=== PATIENT | female | born 1980 | race Caucasian/White ===

== ENCOUNTER → 2016-03-29 | Outpatient (CLI) | payer OTHER ==
[2016-03-29 17:09] LABS: MEAN CORPUSCULAR HGB CONC 34.9 g/dl (32.0-36.5); MEAN CORPUSCULAR VOLUME 91.8 fl (80.0-96.0); RED CELL DISTRIBUTION WIDTH 11.6 % (11.5-14.5); WHITE BLOOD COUNT 5.3 K/mm3 (4.0-10.0)
[2016-03-29 18:45] LABS: ALBUMIN 3.7 GM/DL (3.2-5.2); ALBUMIN/GLOBULIN RATIO 1.12 (1.00-1.93); ALKALINE PHOSPHATASE 44 U/L (45-117); ALT/SGPT 33 U/L (12-78); ANION GAP 11 MEQ/L (8-16); AST/SGOT 18 U/L (15-37); BILIRUBIN,TOTAL 0.3 MG/DL (0.2-1.0); BLOOD UREA NITROGEN 9 MG/DL (7-18); CALCIUM LEVEL 8.6 MG/DL (8.5-10.1); CARBON DIOXIDE LEVEL 27 MEQ/L (21-32); CHLORIDE LEVEL 104 MEQ/L (98-107); CHOLESTEROL LEVEL 160 MG/DL (<200); CREATININE FOR GFR 0.67 MG/DL (0.55-1.02); GLOMERULAR FILTRATION RATE > 60.0 (>60); GLUCOSE, FASTING 82 MG/DL (70-105); POTASSIUM SERUM 4.1 MEQ/L (3.5-5.1); SODIUM LEVEL 142 MEQ/L (136-145); TRIGLYCERIDES LEVEL 108 MG/DL (<150)
== END ==
LOC: M LAB 15:50
PROVIDERS: ATTEND Family Medicine
DX: D64.9 Anemia, unspecified (principal); R53.83 Other fatigue

== ENCOUNTER → 2016-10-14 | Outpatient (CLI) | payer OTHER ==
--- NOTE | 2016-10-14 14:24 | REP ---
Pelvic ultrasound including transabdominal, endovaginal and Doppler ultrasound assessment: The bladder is adequately distended. The uterus is anteverted and upper normal size measuring 8.9 x 4.45 point 7 cm. The endometrium is not thickened measuring up to 4.3 mm. There is an IUD within the endometrial canal. The ovaries are normal size. Right ovary measures 2.9 x 1.9 x 2.1 cm. Left ovary measures 3.5 x 3.0 x 3.3 cm. There is no dominant ovarian mass or cyst. There is vascular flow in both ovaries with the Doppler resistive index of the intraparenchymal arteries of the right ovary measuring 0.43 on the left ovary measuring 0.38. The myometrium is heterogeneous compatible with fibroid uterus. Impression: Heterogeneous myometrium compatible with fibroid uterus. However no focal discrete fibroids are identified. There is an IUD in the endometrial canal. There is no dominant ovarian mass or cyst. There is vascular flow in both ovaries. No free fluid in the pelvis. Signed by Napoleon Dupree MD 10/14/2016 02:16 P
== END ==
LOC: M RAD 09:57
PROVIDERS: ATTEND Family Medicine
DX: R19.03 Right lower quadrant abdominal swelling, mass and lump (principal)

== ENCOUNTER → 2016-10-19 | Outpatient (CLI) | payer OTHER ==
[2016-10-19 10:12] LABS: MEAN CORPUSCULAR HEMOGLOBIN 32.7 pg (27.0-33.0); MEAN CORPUSCULAR HGB CONC 34.8 g/dl (32.0-36.5); MEAN CORPUSCULAR VOLUME 94.1 fl (80.0-96.0); RED CELL DISTRIBUTION WIDTH 11.9 % (11.5-14.5); WHITE BLOOD COUNT 7.1 K/mm3 (4.0-10.0)
--- NOTE | 2016-10-19 12:31 | REP ---
Chest two views HISTORY: Hypertension Comparison: None The lungs are clear. The heart is normal in size. The pulmonary vasculature is normal in appearance. The bony structure is intact. IMPRESSION: No acute disease. Signed by Praveen Pereira MD 10/19/2016 12:23 P
[2016-10-19 16:49] LABS: ALBUMIN 3.7 GM/DL (3.2-5.2); ALBUMIN/GLOBULIN RATIO 1.16 (1.00-1.93); ALKALINE PHOSPHATASE 35 U/L (45-117); ALT/SGPT 26 U/L (12-78); ANION GAP 7 MEQ/L (8-16); AST/SGOT 11 U/L (15-37); BILIRUBIN,TOTAL 0.6 MG/DL (0.2-1.0); BLOOD UREA NITROGEN 12 MG/DL (7-18); CALCIUM LEVEL 8.6 MG/DL (8.5-10.1); CARBON DIOXIDE LEVEL 27 MEQ/L (21-32); CHLORIDE LEVEL 104 MEQ/L (98-107); CHOLESTEROL LEVEL 174 MG/DL (<200); CREATININE FOR GFR 0.67 MG/DL (0.55-1.02); GLOMERULAR FILTRATION RATE > 60.0 (>60); GLUCOSE, FASTING 70 MG/DL (70-105); SODIUM LEVEL 138 MEQ/L (136-145); THYROXINE (T4) 9.4 UG/DL (4.5-12.0); TOTAL PROTEIN 6.9 GM/DL (6.4-8.2); TRIGLYCERIDES LEVEL 75 MG/DL (<150)
--- NOTE | 2016-10-19 22:53 | ECGEPIP ---
Stationary ECG Study [facility] Test Date: 2016-10-19 Pat Name: CHELE TRACY Department: Room: - Gender: F Wellness Specialist: JOHNNY : 1980 Requested By: Elizabeth Kirk Order Number: [id number] Reading MD: Csaey Mooney Measurements Intervals Parsons Rate: 61 P: 40 VT: 166 QRS: 34 QRSD: 89 T: 19 QT: 377 QTc: 380 Interpretive Statements SINUS RHYTHM NO PRIOR TRACING IN THE SYSTEM Electronically Signed On 10-19-2016 22:53:28 EDT by Casey Mooney
== END ==
LOC: M LAB 09:34
PROVIDERS: ATTEND Family Medicine
DX: R53.83 Other fatigue (principal); I10 Essential (primary) hypertension

== ENCOUNTER → 2017-05-02 | Outpatient (CLI) | payer OTHER ==
[2017-05-02 11:03] LABS: HEMATOCRIT 43.9 % (36.0-47.0); HEMOGLOBIN 14.7 g/dl (12.0-16.0); MEAN CORPUSCULAR HEMOGLOBIN 31.2 pg (27.0-33.0); MEAN CORPUSCULAR HGB CONC 33.5 g/dl (32.0-36.5); MEAN CORPUSCULAR VOLUME 93.2 fl (80.0-96.0); PLATELET COUNT, AUTOMATED 225 10^3/uL (150-450); RED BLOOD COUNT 4.71 10^6/uL (4.00-5.40); RED CELL DISTRIBUTION WIDTH 11.7 % (11.5-14.5); WHITE BLOOD COUNT 6.7 10^3/uL (4.0-10.0)
[2017-05-02 11:13] LABS: ESTIMATED AVERAGE GLUCOSE 100 MG/DL (60-110); HEMOGLOBIN A1c 5.1 %
[2017-05-02 11:22] LABS: TOTAL 25(OH) VITAMIN D 19.9 NG/ML (30.0-100.0)
[2017-05-02 11:26] LABS: ALBUMIN 3.6 GM/DL (3.2-5.2); ALBUMIN/GLOBULIN RATIO 1.13 (1.00-1.93); ALKALINE PHOSPHATASE 34 U/L (45-117); ALT/SGPT 22 U/L (12-78); ANION GAP 5 MEQ/L (8-16); AST/SGOT 16 U/L (7-37); BILIRUBIN,TOTAL 0.6 MG/DL (0.2-1.0); BLOOD UREA NITROGEN 10 MG/DL (7-18); CALCIUM LEVEL 8.9 MG/DL (8.5-10.1); CARBON DIOXIDE LEVEL 33 MEQ/L (21-32); CHLORIDE LEVEL 103 MEQ/L (98-107); CHOLESTEROL LEVEL 183 MG/DL (<200); CHOLESTEROL RISK RATIO 3.452 (<5); CREATININE FOR GFR 0.65 MG/DL (0.55-1.30); GLOMERULAR FILTRATION RATE > 60.0 (>60); GLUCOSE, FASTING 84 MG/DL (70-100); HDL CHOLESTEROL 53 MG/DL (>40); IRON (FE) 111 UG/DL (50-170); LDL CHOLESTEROL 108.6 MG/DL (<100); NON-HDL-C 130 MG/DL; PERCENT SATURATION 37.5 % (13.2-45.0); POTASSIUM SERUM 4.4 MEQ/L (3.5-5.1); SODIUM LEVEL 141 MEQ/L (136-145); TOTAL IRON BINDING CAPACITY 296 UG/DL (250-450); TOTAL PROTEIN 6.8 GM/DL (6.4-8.2); TRIGLYCERIDES LEVEL 107 MG/DL (<150)
== END ==
LOC: M LAB 10:23
DX: R53.83 Other fatigue (principal); E03.9 Hypothyroidism, unspecified; D64.9 Anemia, unspecified
CPT/HCPCS: 83550

== ENCOUNTER → 2017-12-25 | Outpatient (CLI) | payer OTHER | LOC: M RAD 10:06 | DX: I10 Essential (primary) hypertension (principal) | CPT/HCPCS: 71046 ==

== ENCOUNTER → 2017-12-31 | Outpatient (REF) | payer OTHER | LOC: M LAB REF 18:01 | DX: J02.9 Acute pharyngitis, unspecified (principal) ==

== ENCOUNTER → 2019-10-11 | Outpatient (REF) | payer OTHER, MEDICARE ==
[2019-11-08 12:43] LABS: APPEARANCE, URINE HAZY (CLEAR); BACTERIA, URINE AUTO 1+ (NEGATIVE); BILIRUBIN, URINE AUTO NEGATIVE (NEGATIVE); BLOOD, URINE BLOOD 3+ (NEGATIVE); COLOR, URINE YELLOW (YELLOW); GLUCOSE, URINE (UA) AUTO NEGATIVE (NEGATIVE); KETONE, URINE AUTO NEGATIVE (NEGATIVE); LEUKOCYTE ESTERASE, URINE AUTO 3+ (NEGATIVE); NITRITE, URINE AUTO NEGATIVE (NEGATIVE); PROTEIN, URINE AUTO NEGATIVE (NEGATIVE); RBC, URINE AUTO 86 /HPF (0-3); SPECIFIC GRAVITY URINE AUTO 1.008 (1.002-1.035); SQUAMOUS EPITHELIAL CELL UR AU 1 /HPF (0-6); UROBILINOGEN, URINE AUTO 0.2 mg/dL (0.0-2.0); WBC, URINE AUTO 29 /HPF (0-3)
[2019-11-26 09:47] LABS: CHLAMYDIA DNA AMPLIFICATION NEGATIVE (NEGATIVE); GC DNA AMPLIFICATION NEGATIVE (NEGATIVE)
== END ==
LOC: M SFHCLERA 12:17
PROVIDERS: ATTEND Nurse Practitioner Family
DX: R39.9 Unspecified symptoms and signs involving the genitourinary system (principal)

== ENCOUNTER → 2019-11-27 | Outpatient (CLI) | payer OTHER ==
[2019-11-27 12:15] LABS: BASO # 0.1 10^3/uL (0.0-0.2); BASO % 0.9 % (0.0-1.0); EOS # 0.1 10^3/uL (0.0-0.5); EOS % 1.3 % (0.0-3.0); HEMATOCRIT 45.1 % (36.0-47.0); HEMOGLOBIN 15.2 g/dl (12.0-15.5); LYMPH # 1.9 10^3/uL (1.5-5.0); LYMPH % 33.9 % (24.0-44.0); MEAN CORPUSCULAR HEMOGLOBIN 32.1 pg (27.0-33.0); MEAN CORPUSCULAR HGB CONC 33.7 g/dl (32.0-36.5); MEAN CORPUSCULAR VOLUME 95.3 fl (80.0-96.0); MONO # 0.7 10^3/uL (0.0-0.8); MONO % 12.7 % (0.0-5.0); NEUTROPHILS # 2.8 10^3/uL (1.5-8.5); PLATELET COUNT, AUTOMATED 246 10^3/uL (150-450); RED BLOOD COUNT 4.73 10^6/uL (4.00-5.40); WHITE BLOOD COUNT 5.5 10^3/uL (4.0-10.0)
--- NOTE | 2019-11-27 12:50 | REPVR ---
PROCEDURE INFORMATION: Exam: XR Complete Acute Abdomen Series Exam date and time: 11/27/2019 12:25 PM Age: 39 years old Clinical indication: Abdominal pain; Acute; Patient HX: H/0 gastric bypass; Additional info: H/o gastric bypass, acute R ab pain TECHNIQUE: Imaging protocol: XR complete acute abdomen series, including 2 or more views of the abdomen and a single view chest. COMPARISON: CR Chest, 2 view PA, Lat 12/25/2017 10:24 AM FINDINGS: Lungs: Hyperinflation and mild interstitial prominence. No acute airspace disease. Pleural space: No pleural effusion. Heart/Mediastinum: Normal configuration of the heart. Gastrointestinal tract: Enteric contrast in the colon. Mild small bowel dilatation and air-fluid levels. Intraperitoneal space: Surgical sutures in the left upper and mid abdomen. Organs: IUD. Vasculature: Subcentimeter pelvic calcifications, presumably vascular in etiology. Bones/joints: Mild degenerative change. IMPRESSION: 1. Hyperinflation and mild interstitial prominence. 2. Enteric contrast in the colon. Mild small bowel dilatation and air-fluid levels. Electronically signed by: Fede Metz On 11/27/2019 12:49:42 PM
[2019-11-27 12:53] LABS: ALT/SGPT 33 U/L (12-78); AMYLASE 32 U/L (25-115); BILIRUBIN,TOTAL 0.7 MG/DL (0.2-1.0); BLOOD UREA NITROGEN 10 MG/DL (7-18); CALCIUM LEVEL 9.4 MG/DL (8.5-10.1); CARBON DIOXIDE LEVEL 29 MEQ/L (21-32); CHLORIDE LEVEL 104 MEQ/L (98-107); CREATININE FOR GFR 0.88 MG/DL (0.55-1.30); GLOMERULAR FILTRATION RATE > 60.0 (>60); GLUCOSE, FASTING 89 MG/DL (70-100); LIPASE 38 U/L (73-393); POTASSIUM SERUM 3.8 MEQ/L (3.5-5.1); SODIUM LEVEL 138 MEQ/L (136-145); TOTAL PROTEIN 7.3 GM/DL (6.4-8.2)
== END ==
LOC: M LAB 11:44
PROVIDERS: ATTEND Family Medicine
DX: R10.9 Unspecified abdominal pain (principal); Z98.0 Intestinal bypass and anastomosis status; Z98.84 Bariatric surgery status

== ENCOUNTER → 2019-12-13 | Outpatient (REF) | payer OTHER | LOC: M SFHCLERA 13:42 | PROVIDERS: ATTEND Nurse Practitioner Family | DX: N89.8 Other specified noninflammatory disorders of vagina (principal) ==

== ENCOUNTER → 2020-03-18 | Outpatient (CLI) | payer OTHER ==
[2020-03-18 10:32] LABS: BASO # 0.1 10^3/uL (0.0-0.2); BASO % 0.8 % (0.0-1.0); EOS # 0.2 10^3/uL (0.0-0.5); EOS % 2.7 % (0.0-3.0); HEMATOCRIT 45.3 % (36.0-47.0); HEMOGLOBIN 14.4 g/dl (12.0-15.5); LYMPH # 2.2 10^3/uL (1.5-5.0); LYMPH % 33.3 % (24.0-44.0); MEAN CORPUSCULAR HEMOGLOBIN 31.3 pg (27.0-33.0); MEAN CORPUSCULAR HGB CONC 31.8 g/dl (32.0-36.5); MEAN CORPUSCULAR VOLUME 98.5 fl (80.0-96.0); MONO # 0.7 10^3/uL (0.0-0.8); MONO % 11.2 % (0.0-5.0); NEUTROPHILS # 3.4 10^3/uL (1.5-8.5); NEUTROPHILS % 51.8 % (36.0-66.0); PLATELET COUNT, AUTOMATED 213 10^3/uL (150-450); WHITE BLOOD COUNT 6.6 10^3/uL (4.0-10.0)
[2020-03-18 11:14] LABS: ALBUMIN 4.1 GM/DL (3.2-5.2); ALT/SGPT 29 U/L (12-78); BILIRUBIN,TOTAL 0.6 MG/DL (0.2-1.0); BLOOD UREA NITROGEN 10 MG/DL (7-18); CALCIUM LEVEL 9.1 MG/DL (8.5-10.1); CARBON DIOXIDE LEVEL 30 MEQ/L (21-32); CHLORIDE LEVEL 105 MEQ/L (98-107); CREATININE FOR GFR 0.69 MG/DL (0.55-1.30); FREE T4 0.88 NG/DL (0.76-1.46); GLOMERULAR FILTRATION RATE > 60.0 (>60); GLUCOSE, FASTING 80 MG/DL (70-100); POTASSIUM SERUM 4.5 MEQ/L (3.5-5.1); SODIUM LEVEL 139 MEQ/L (136-145); THYROID STIMULATING HORMONE 0.923 uIU/ML (0.358-3.740); TOTAL PROTEIN 6.7 GM/DL (6.4-8.2)
== END ==
LOC: M LAB 09:28
PROVIDERS: ATTEND Family Medicine
DX: F31.81 Bipolar II disorder (principal)

== ENCOUNTER → 2020-05-18 | Outpatient (CLI) | payer OTHER ==
[2020-05-18 10:59] LABS: BASO % 0.6 % (0.0-1.0); EOS # 0.2 10^3/uL (0.0-0.5); EOS % 2.6 % (0.0-3.0); HEMATOCRIT 41.8 % (36.0-47.0); HEMOGLOBIN 13.9 g/dl (12.0-15.5); LYMPH # 2.3 10^3/uL (1.5-5.0); LYMPH % 37.7 % (24.0-44.0); MEAN CORPUSCULAR HEMOGLOBIN 31.8 pg (27.0-33.0); MEAN CORPUSCULAR HGB CONC 33.3 g/dl (32.0-36.5); MEAN CORPUSCULAR VOLUME 95.7 fl (80.0-96.0); MONO # 0.4 10^3/uL (0.0-0.8); MONO % 5.8 % (2.0-8.0); NEUTROPHILS # 3.3 10^3/uL (1.5-8.5); PLATELET COUNT, AUTOMATED 228 10^3/uL (150-450); RED BLOOD COUNT 4.37 10^6/uL (4.00-5.40); WHITE BLOOD COUNT 6.2 10^3/uL (4.0-10.0)
--- NOTE | 2020-05-18 11:14 | REP ---
INDICATION: PAIN IN THORACIC SPINE LAB 1ST XR 2ND COMPARISON: None. TECHNIQUE: AP, lateral, and swimmers views. FINDINGS: Alignment and kyphosis is maintained. Vertebral bodies intact. No acute fracture / compression injury or subluxation. No degenerative changes. Paravertebral soft tissues are normal. IMPRESSION: Normal thoracic spine series. <Electronically signed by Pepe Garcia > 05/18/20 [id number]
[2020-05-18 11:34] LABS: ALBUMIN 3.5 GM/DL (3.2-5.2); ALT/SGPT 34 U/L (12-78); BILIRUBIN,TOTAL 0.2 MG/DL (0.2-1.0); BLOOD UREA NITROGEN 14 MG/DL (7-18); CALCIUM LEVEL 8.9 MG/DL (8.5-10.1); CARBON DIOXIDE LEVEL 31 MEQ/L (21-32); CHLORIDE LEVEL 106 MEQ/L (98-107); CREATININE FOR GFR 0.67 MG/DL (0.55-1.30); FREE T4 0.92 NG/DL (0.76-1.46); GLOMERULAR FILTRATION RATE > 60.0 (>60); GLUCOSE, FASTING 125 MG/DL (70-100); POTASSIUM SERUM 3.8 MEQ/L (3.5-5.1); SODIUM LEVEL 142 MEQ/L (136-145); TOTAL PROTEIN 6.5 GM/DL (6.4-8.2)
== END ==
LOC: M LAB 10:31
PROVIDERS: ATTEND Family Medicine
DX: R63.4 Abnormal weight loss (principal); M54.6 Pain in thoracic spine

== ENCOUNTER → 2020-09-11 | Outpatient (CLI) | payer OTHER, MEDICAID ==
[~2020-09-11] MED LIST: MIRE1IUD IU
== END ==
LOC: M LABSMTC 14:28
PROVIDERS: ATTEND Anesthesiology
DX: Z01.812 Encounter for preprocedural laboratory examination (principal); Z20.822 Contact with and (suspected) exposure to COVID-19

== ENCOUNTER → 2021-01-29 | Outpatient (CLI) | payer MEDICAID, OTHER ==
[~2021-01-29] MED LIST changes: +QUET50TA4 PO
== END ==
LOC: M LABSMTC 11:05
PROVIDERS: ATTEND Anesthesiology
DX: Z01.812 Encounter for preprocedural laboratory examination (principal); Z20.822 Contact with and (suspected) exposure to COVID-19

== ENCOUNTER 2021-02-03 06:12 | Day surgery (SDC) | payer OTHER ==
[~2021-02-03] VITALS: Ht 149.9 cm; Wt 57.6 kg
[~2021-02-03 06:12] MED LIST changes: +LR 1,000 ML IV ONE; -QUET50TA4 PO; +ceFAZolin SOD 2 GM in IV 1 EA IV ONE
--- OUTSIDE RECORDS SUMMARY | 2021-02-03 06:15 | CCD | Continuity of Care Document ---
Author Author Haley WERNER MD Organization Unknown Address [address] [place] [address] , [facility] [address] [place] [address] Phone [phone] Care Team Providers Care Armature Winder Repair Name Role Phone Jorge De Jesus M.D. AUTM [phone] Sania Olmstead M.D. AUTM [phone] AUTM Unavailable Problems Description No Information Available Social History Type Date Description Comments Sex Unknown Tobacco Use Start: Unknown Never Smoked Cigarettes ETOH Use Denies alcohol use Tobacco Use Start: Unknown Non Smoker Recreational Drug Use Denies Drug Use Allergies and adverse reactions Description No Known Drug Allergies Medications Active Medications SIG Qnty Indications Ordering Provide r Date Adderall XR 20mg Caps ER 24HR Unknown Immunizations Description No Information Available Vital Signs Date Vital Result Comment 12/28/2020 10:56am Body Temperature 97.4 F 08/06/2020 11:01am Body Temperature 97.2 F Results Description No Information Available Procedures Date Code Description Status 12/28/2020 21342 Office/Outpatient Established Mo d MDM 30-39 Min Completed 08/06/2020 46117 Office/Outpatient Established Mo d MDM 30-39 Min Completed Medical Devices Description No Information Available Encounters Type Date Location Provider Dx Diagnosis Office Visit 12/28/2020 11:00a [facility] Ed Werner MD G56.01 Carpal tunnel syndrome, right upper limb Office Visit 08/06/2020 11:00a [facility] Ed Werner MD G56.01 Carpal tunnel syndrome, right upper limb Assessments Date Code Description Provider 12/28/2020 G56.01 Carpal tunnel syndrome, right up per limb Ed Werner MD 08/06/2020 G56.01 Carpal tunnel syndrome, right up per limb Ed Werner MD Plan of Treatment No Information Available Functional Status Description No Information Available Mental Status Description No Information Available Referrals Description No Information Available
--- OUTSIDE RECORDS SUMMARY | 2021-02-03 06:15 | CCD ---
Author Author [facility] Organization [facility] Address Unknown Phone Unavailable Care Team Providers Care Supervisory Cbp Officer Name Role Phone Test, Provider Unavailable PROBLEMS Type Condition ICD9-CM Code VVG68-GD Code Onset Dates Condition S tatus W/U Status Risk SNOMED Code Notes Problem Carpal tunnel syndrome, right G56.01 Active co nfirmed [id number] Problem Seasonal allergic rhinitis due to other allergic trigger J30.89 Active confirmed 257169326 Problem Anxiety disorder, unspecified type F41.9 Activ e confirmed 192658172 Problem Major depressive disorder, recurrent, moderate F33 .1 Active confirmed 872552132 Problem Bipolar II disorder F31.81 Active confirmed 23108918 Problem Drug abuse F19.10 Active confirmed 83281351 ALLERGIES No Known Allergies ENCOUNTERS from 1982 to 2020-11-11 Encounter Location Date Provider Diagnosis [address] [phone] [place] [address] Oct, Provider Test IMMUNIZATIONS Vaccine Route Administration Date Status COVID-19 dose #2 given elsewhere Unspecified IM Intramuscular [facility] 2020 Administered COVID-19 dose #1 given elsewhere Unspecified IM Intramuscular Fe 2020 Administered SOCIAL HISTORY Sex Assigned At : Social History Observation Description Sex Assigned At Unknown Education: Question Answer Notes Level of Education: Not Finished College Audit Question Answer Notes Total Score: 1 Interpretation: Alcohol Education Language: Question Answer Notes Languages spoken: Divehi Jew: Question Answer Notes Jew 35 None Sexual Hx: Question Answer Notes Had sex in the last 12 months (vaginal, oral, or anal)? Yes LMP: IUD Have you ever had an STD? No with Men only Use protection? No Drug and Alcohol Question Answer Notes Total Score: 0 Interpretation: No problems reported Alcohol Screening: Question Answer Notes Did you have a drink containing alcohol in the past year? Ye s Points 1 Interpretation Negative How often did you have six or more drinks on one occas ion in the past year? Never (0 points) How many drinks did you have on a typica l day when you were drinking in the past year? 1 or 2 (0 points) How often did you have a drink containing alcohol in t he past year? Monthly or less (1 point) REASON FOR REFERRAL No Information VITAL SIGNS No information MEDICATIONS Medication SIG (Take, Route, Frequency, Duration) Notes Start Da te End Date Status Valtrex 1 GM 2 tablets Orally Once a day for 1 days PRN Feb Active Fluticasone Propionate 50 MCG/ACT 1 spray in each nost ril Nasally Once a day for 90 days Jun, Active Divalproex Sodium 250 MG 1 tablet Orally Twice a day Active Paxil 10 MG 1 tablet in the morning Orally Once a day Active Mirena (52 MG) 20 MCG/24HR as directed Intrauterine Active Omeprazole 40 MG 1 capsule 30 minutes before morning meal Orally Once a day for 30 day(s) Dec, Active Xanax 0.5 MG 1 tablet Orally Twice a day as needed (MDD;2) for 30 day s Active buPROPion HCl ER (XL) 300 MG 1 tablet in the morning Orally Once a da y Active PROCEDURES No Information RESULTS No Results REASON FOR VISIT Fluticasone Refill MEDICAL (GENERAL) HISTORY Type Description Date Medical History bipolar Medical History GERD Surgical History C section 2003 Surgical History left carpal tunnel 2004 Surgical History gastric bypass 2018 Goals Section No Information Health Concerns No Information MEDICAL EQUIPMENT No Information MENTAL STATUS No Information FUNCTIONAL STATUS No Information ASSESSMENTS No Information PLAN OF TREATMENT Medication Medication Name Sig Start Date Stop Date Divalproex Sodium 250 MG 1 tablet Orally Twice a day Xanax 0.5 MG 1 tablet Orally Twice a day as needed (MDD;2) fo r 30 days buPROPion HCl ER (XL) 300 MG 1 tablet in the morning Orally Once a day Fluticasone Propionate 50 MCG/ACT 1 spray in each nost ril Nasally Once a day for 90 days Jun, Paxil 10 MG 1 tablet in the morning Orally Once a day Insurance Providers Payer Name Payer Address Payer Phone Insured Name Patient Relati onship to Insured Coverage Start Date Coverage End Date [facility] [employer] [address] [facility] [id number] CHELE TRACY self
--- OUTSIDE RECORDS SUMMARY | 2021-02-03 06:15 | CCD ---
Author Author [facility] Organization [facility] Address Unknown Phone Unavailable Care Team Providers Care Erp Manager Name Role Phone GOPAL, Dev HERNANDEZ Unavailable Unavailable LETTIERE, Dev HERNANDEZ Unavailable Unavailable LETTIERE, Dev HERNANDEZ Unavailable Unavailable LETTIERE, Dev HERNANDEZ Unavailable Unavailable LETTIERE, Dev HERNANDEZ Unavailable Unavailable LETTIERE, Dev HERNANDEZ Unavailable Unavailable LETTIERE, Dev HERNANDEZ Unavailable Unavailable LETTIERE, Dev HERNANDEZ Unavailable Unavailable LETTIERE, Dev HERNANDEZ Unavailable Unavailable LETTIERE, Dev HERNANDEZ Unavailable Unavailable LETTIERE, Dev HERNANDEZ Unavailable Unavailable LETTIERE, Dev HERNANDEZ Unavailable Unavailable LETTIERE, Dev HERNANDEZ Unavailable Unavailable LETTIERE, Dev HERNANDEZ Unavailable Unavailable LETTIERE, Dev HERNANDEZ Unavailable Unavailable LETTIERE, Dev HERNANDEZ Unavailable Unavailable LETTIERE, Dev HERNANDEZ Unavailable Unavailable LETTIERE, Dev HERNANDEZ Unavailable Unavailable LETTIERE, Dev HERNANDEZ Unavailable Unavailable LETTIERE, A NITA PA Unavailable Unavailable LETTIERE, A NITA PA Unavailable Unavailable LETTIERE, A NITA PA Unavailable Unavailable LETTIERE, A NITA PA Unavailable Unavailable LETTIERE, A NITA PA Unavailable Unavailable LETTIERE, A NITA PA Unavailable Unavailable LETTIERE, A NITA PA Unavailable Unavailable LETTIERE, A NITA PA Unavailable Unavailable LETTIERE, A NITA PA Unavailable Unavailable LETTIERE, A NITA PA Unavailable Unavailable LETTIERE, A NITA PA Unavailable Unavailable LETTIERE, A NITA PA Unavailable Unavailable Mollison, Isaac Ward MD Unavailable Unavailable Mollison, Isaac Ward MD Unavailable Unavailable Mollison, Isaac Ward MD Unavailable Unavailable Mollison, Isaac Ward MD Unavailable Unavailable Mollison, Isaac Ward MD Unavailable Unavailable Mollison, Isaac Ward MD Unavailable Unavailable Mollison, Isaac Ward MD Unavailable Unavailable Mollison, Isaac Ward MD Unavailable Unavailable Mollison, Isaac Ward MD Unavailable Unavailable Mollison, Isaac Ward MD Unavailable Unavailable Mollison, Isaac Ward MD Unavailable Unavailable Mollison, Isaac Ward MD Unavailable Unavailable Mollison, Isaac Ward MD Unavailable Unavailable Mollison, Isaac Ward MD Unavailable Unavailable Mollison, Isaac Ward MD Unavailable Unavailable Mollison, Isaac Ward MD Unavailable Unavailable Mollison, Isaac Ward MD Unavailable Unavailable Mollison, Isaac Ward MD Unavailable Unavailable Mollison, Isaac Ward MD Unavailable Unavailable Mollison, Isaac Ward MD Unavailable Unavailable Mollison, Isaac Ward MD Unavailable Unavailable Mollison, Isaac Ward MD Unavailable Unavailable Mollison, Isaac Ward MD Unavailable Unavailable Mollison, Isaac Ward MD Unavailable Unavailable Mollison, Isaac Ward MD Unavailable Unavailable Mollison, Isaac Ward MD Unavailable Unavailable Mollison, Isaac Ward MD Unavailable Unavailable Mollison, Isaac Ward MD Unavailable Unavailable Mollison, Isaac Ward MD Unavailable Unavailable Mollison, Isaac Ward MD Unavailable Unavailable Sanjeev Simmons MD Unavailable Unavailable Sanjeev Simmons MD Unavailable Unavailable Sanjeev Simmons MD Unavailable Unavailable Sanjeev Simmons MD Unavailable Unavailable Sanjeev Simmons MD Unavailable Unavailable Sanjeev Simmons MD Unavailable Unavailable Sanjeev Simmons MD Unavailable Unavailable Sanjeev Simmons MD Unavailable Unavailable Sanjeev Simmons MD Unavailable Unavailable Sanjeev Simmons MD Unavailable Unavailable Re-disclosure Warning The records that you are about to access may contain information from federally-assisted alcohol or drug abuse programs. If such information is present, then the following federally mandated warning applies: This information has been disclosed to you from records protected by federal confidentiality rules (42 CFR part 2). The federal rules prohibit you from making any further disclosure of this information unless further disclosure is expressly permitted by the written consent of the person to whom it pertains or as otherwise permitted by 42 CFR part 2. A general authorization for the release of medical or other information is NOT sufficient for this purpose. The Federal rules restrict any use of the information to criminally investigate or prosecute any alcohol or drug abuse patient.The records that you are about to access may contain highly sensitive health information, the redisclosure of which is protected by Article 27-F of the [facility] Public Health law. If you continue you may have access to information: Regarding HIV / AIDS; Provided by facilities licensed or operated by the [facility] Office of Mental Health; or Provided by the [facility] Office for People With Developmental Disabilities. If such information is present, then the following [facility] mandated warning applies: This information has been disclosed to you from confidential records which are protected by state law. State law prohibits you from making any further disclosure of this information without the specific written consent of the person to whom it pertains, or as otherwise permitted by law. Any unauthorized further disclosure in violation of state law may result in a fine or fci sentence or both. A general authorization for the release of medical or other information is NOT sufficient authorization for further disc losure. Family History Family Member Name Family Member Gender Family Member Status Date o f Status Description Data Source(s) Unknown Male Problem MEDENT ([facility]) Unknown Male Problem MEDENT ([facility]) Unknown Unknown Encounters Encounter Providers Location Date Indications Data Source(s ) Outpatient Attender: Ed Douglass/Reinier/Mir/Re indl 12/28/2020 11:00:00 AM EDT MEDENT ([facility]) Unknown [address] [facility] [place] [address] 11/10/2020 12:00:00 AM EDT eCW1 ([facility]) Unknown [address] [facility] [place] [address] 08/21/2020 12:00:00 AM EDT eCW1 ([facility]) [place] [address] [facility] [address] [place] [address] 08/11/2020 12:00:00 AM EDT eCW1 ([facility]) Outpatient Attender: Ed Douglass/Reinier/Mir/Re indl 08/06/2020 11:00:00 AM EDT MED[facility] ([facility]) [place] [address] [facility] [place] [address] 07/16/2020 12:00:00 AM EDT eCW1 ([facility]) [place] [address] [facility] [place] [address] 07/10/2020 12:00:00 AM EDT eCW1 ([facility]) [place] [address] [facility] [place] [address] 06/18/2020 12:00:00 AM EDT eCW1 ([facility]) [place] [address] [facility] [place] [address] 06/15/2020 12:00:00 AM EDT eCW1 ([facility]) Outpatient Attender: Sanjeev Douglass/Quintin/Rein dl 06/04/2020 01:00:00 PM EDT MEDENT ([facility]) [place] [address] [facility] [place] [address] 06/04/2020 12:00:00 AM EDT eCW1 ([facility]) [place] [address] [facility] [place] [address] 06/02/2020 12:00:00 AM EDT eCW1 ([facility]) [place] [address] [facility] [place] [address] 05/28/2020 12:00:00 AM EDT eCW1 ([facility]) Out[place] [address] [facility] [place] [address] 05/12/2020 12:00:00 AM EST eCW1 ([facility]) [place] [address] [facility] [place] [address] 04/07/2020 12:00:00 AM EST eCW1 ([facility]) [place] [address] [facility] [place] [address] 03/05/2020 12:00:00 AM EST eCW1 ([facility]) Unknown [address] [facility] [place] [address] 03/05/2020 12:00:00 AM EST eCW1 ([facility]) [place] [address] [facility] [place] [address] 03/05/2020 12:00:00 AM EST eCW1 ([facility]) Outpatient Attender: NITA kong 03/04/2020 08:00:00 AM EST MEDENT ([facility] ([facility]) [facility] Scheduled Visit [address] [place] [address] 02/20/2020 12:00:00 AM EST eCW1 ([facility]) Outpatient [address] [facility] [place] [address] 02/10/2020 12:00:00 AM EST eCW1 ([facility]) Unknown [address] [facility] [place] [address] 01/31/2020 12:00:00 AM EST eCW1 ([facility]) [place] [address] [facility] [place] [address] 01/30/2020 12:00:00 AM EST eCW1 ([facility]) Unknown [address] [facility] [place] [address] 01/10/2020 12:00:00 AM EDT eCW1 ([facility]) Outpatient [address] [facility] [place] [address] 12/13/2019 12:00:00 AM EDT eCW1 ([facility]) Immunizations Vaccine Date Status Description Data Source(s) COVID-19 dose #2 given elsewhere Unspecified 05/21/2020 09:1 7:00 AM EST completed eCW1 ([facility]) COVID-19 dose #2 given elsewhere Unspecified 05/21/2020 09:1 7:00 AM EST completed eCW1 ([facility]) COVID-19 dose #2 given elsewhere Unspecified 05/21/2020 09:1 7:00 AM EST completed eCW1 ([facility]) COVID-19 dose #2 given elsewhere Unspecified 05/21/2020 09:1 7:00 AM EST completed eCW1 ([facility]) COVID-19 dose #2 given elsewhere Unspecified 05/21/2020 09:1 7:00 AM EST completed eCW1 ([facility]) COVID-19 dose #2 given elsewhere Unspecified 05/21/2020 09:1 7:00 AM EST completed eCW1 ([facility]) COVID-19 dose #2 given elsewhere Unspecified 05/21/2020 09:1 7:00 AM EST completed eCW1 ([facility]) COVID-19 dose #2 given elsewhere Unspecified 05/21/2020 09:1 7:00 AM EST completed eCW1 ([facility]) COVID-19 dose #2 given elsewhere Unspecified 05/21/2020 09:1 7:00 AM EST completed eCW1 ([facility]) COVID-19 dose #2 given elsewhere Unspecified 05/21/2020 09:1 7:00 AM EST completed eCW1 ([facility]) COVID-19 VACCINE Moderna 05/21/2020 12:00:00 AM EST completed [employer] Vaccine Series Complete: YESThis Data wa s Submitted to [facility] Via [employer]. COVID-19 dose #1 given elsewhere Unspecified 04/23/2020 09:1 6:00 AM EST completed eCW1 ([facility]) COVID-19 dose #1 given elsewhere Unspecified 04/23/2020 09:1 6:00 AM EST completed eCW1 ([facility]) COVID-19 dose #1 given elsewhere Unspecified 04/23/2020 09:1 6:00 AM EST completed eCW1 ([facility]) COVID-19 dose #1 given elsewhere Unspecified 04/23/2020 09:1 6:00 AM EST completed eCW1 ([facility]) COVID-19 dose #1 given elsewhere Unspecified 04/23/2020 09:1 6:00 AM EST completed eCW1 ([facility]) COVID-19 dose #1 given elsewhere Unspecified 04/23/2020 09:1 6:00 AM EST completed eCW1 ([facility]) COVID-19 dose #1 given elsewhere Unspecified 04/23/2020 09:1 6:00 AM EST completed eCW1 ([facility]) COVID-19 dose #1 given elsewhere Unspecified 04/23/2020 09:1 6:00 AM EST completed eCW1 ([facility]) COVID-19 dose #1 given elsewhere Unspecified 04/23/2020 09:1 6:00 AM EST completed eCW1 ([facility]) COVID-19 dose #1 given elsewhere Unspecified 04/23/2020 09:1 6:00 AM EST completed eCW1 ([facility]) COVID-19 VACCINE Moderna 04/23/2020 12:00:00 AM EST completed [employer] Vaccine Series Complete: NOThis Data was Submitted to [facility] Via [employer]. Medications Medication Brand Name Start Date Product Form Dose Route Admi nistrative Instructions Pharmacy Instructions Status Indications Reaction Description Data Source(s) 8 HR Acetaminophen 650 MG Extended Release Oral Tablet [Tyle nol] Tylenol 8 Hour 07/14/2020 12:00:00 AM EDT active MEDENT ([facility]) Fluticasone Propionate 50 MCG/ACT Fluticasone Propionate 50 MCG/ACT 06/18/2020 12:00:00 AM EDT 1.0 {spray_in_each_nostril} acti ve Fluticasone Propionate 50 MCG/ACT eCW1 ([facility]) Fluticasone Propionate 50 MCG/ACT Fluticasone Propionate 50 MCG/ACT 06/18/2020 12:00:00 AM EDT 1.0 {spray_in_each_nostril} acti ve Fluticasone Propionate 50 MCG/ACT eCW1 ([facility]) Fluticasone Propionate 50 MCG/ACT Fluticasone Propionate 50 MCG/ACT 06/18/2020 12:00:00 AM EDT 1.0 {spray_in_each_nostril} acti ve Fluticasone Propionate 50 MCG/ACT eCW1 ([facility]) Fluticasone Propionate 50 MCG/ACT Fluticasone Propionate 50 MCG/ACT 06/18/2020 12:00:00 AM EDT 1.0 {spray_in_each_nostril} acti ve Fluticasone Propionate 50 MCG/ACT eCW1 ([facility]) Fluticasone Propionate 50 MCG/ACT Fluticasone Propionate 50 MCG/ACT 06/18/2020 12:00:00 AM EDT 1.0 {spray_in_each_nostril} acti ve Fluticasone Propionate 50 MCG/ACT eCW1 ([facility]) Fluticasone Propionate 50 MCG/ACT Fluticasone Propionate 50 MCG/ACT 06/18/2020 12:00:00 AM EDT 1.0 {spray_in_each_nostril} acti ve Fluticasone Propionate 50 MCG/ACT eCW1 ([facility]) valacyclovir 1000 MG Oral Tablet [Valtrex] Valtrex 1 GM Valt godfrey 1 GM 03/05/2020 12:00:00 AM EST 2.0 {tablets} active V altrex 1 GM eCW1 ([facility]) Sulfamethoxazole 800 MG / Trimethoprim 1 60 MG Oral Tablet [Bactrim] Bactrim DS 800-160 MG Bactrim DS 800-160 MG 03/05/2020 12:00:00 AM EST 1.0 {table t} active Bactrim DS 800-160 MG eCW1 ( [facility]) Fluconazole 150 MG Oral Tablet [Diflucan] Diflucan 150 MG Di flucan 150 MG 03/05/2020 12:00:00 AM EST 1.0 {tablet} active Diflucan 150 MG eCW1 ([facility]) Divalproex Sodium 250 MG Delayed Release Oral Tablet [ Depakote] Depakote 250 MG Depakote 250 MG 03/05/2020 12:00:00 AM EST active Depakote 250 MG eCW1 ([facility]) Sulfamethoxazole 800 MG / Trimethoprim 1 60 MG Oral Tablet [Bactrim] Bactrim DS 800-160 MG Bactrim DS 800-160 MG 03/05/2020 12:00:00 AM EST 1.0 {table t} active Bactrim DS 800-160 MG eCW1 ( [facility]) valacyclovir 1000 MG Oral Tablet [Valtrex] Valtrex 1 GM Valt godfrey 1 GM 03/05/2020 12:00:00 AM EST 2.0 {tablets} active V altrex 1 GM eCW1 ([facility]) Sulfamethoxazole 800 MG / Trimethoprim 1 60 MG Oral Tablet [Bactrim] Bactrim DS 800-160 MG Bactrim DS 800-160 MG 03/05/2020 12:00:00 AM EST 1.0 {table t} active Bactrim DS 800-160 MG eCW1 ( [facility]) valacyclovir 1000 MG Oral Tablet [Valtrex] Valtrex 1 GM Valt godfrey 1 GM 03/05/2020 12:00:00 AM EST 2.0 {tablets} active V altrex 1 GM eCW1 ([facility]) Fluconazole 150 MG Oral Tablet [Diflucan] Diflucan 150 MG Di flucan 150 MG 03/05/2020 12:00:00 AM EST 1.0 {tablet} active Diflucan 150 MG eCW1 ([facility]) valacyclovir 1000 MG Oral Tablet [Valtrex] Valtrex 1 GM Valt godfrey 1 GM 03/05/2020 12:00:00 AM EST 2.0 {tablets} active V altrex 1 GM eCW1 ([facility]) Sulfamethoxazole 800 MG / Trimethoprim 1 60 MG Oral Tablet [Bactrim] Bactrim DS 800-160 MG Bactrim DS 800-160 MG 03/05/2020 12:00:00 AM EST 1.0 {table t} active Bactrim DS 800-160 MG eCW1 ( [facility]) valacyclovir 1000 MG Oral Tablet [Valtrex] Valtrex 1 GM Valt godfrey 1 GM 03/05/2020 12:00:00 AM EST 2.0 {tablets} active V altrex 1 GM eCW1 ([facility]) Fluconazole 150 MG Oral Tablet [Diflucan] Diflucan 150 MG Di flucan 150 MG 03/05/2020 12:00:00 AM EST 1.0 {tablet} active Diflucan 150 MG eCW1 ([facility]) Divalproex Sodium 250 MG Delayed Release Oral Tablet [ Depakote] Depakote 250 MG Depakote 250 MG 03/05/2020 12:00:00 AM EST 1.0 {tablet} active Depakote 250 MG eCW1 ([facility]) valacyclovir 1000 MG Oral Tablet [Valtrex] Valtrex 1 GM Valt godfrey 1 GM 03/05/2020 12:00:00 AM EST 2.0 {tablets} active V altrex 1 GM eCW1 ([facility]) valacyclovir 1000 MG Oral Tablet [Valtrex] Valtrex 1 GM Valt godfrey 1 GM 03/05/2020 12:00:00 AM EST 2.0 {tablets} active V altrex 1 GM eCW1 ([facility]) valacyclovir 1000 MG Oral Tablet [Valtrex] Valtrex 1 GM Valt godfrey 1 GM 03/05/2020 12:00:00 AM EST 2.0 {tablets} suspended Valtrex 1 GM eCW1 ([facility]) valacyclovir 1000 MG Oral Tablet [Valtrex] Valtrex 1 GM Valt gofdrey 1 GM 03/05/2020 12:00:00 AM EST 2.0 {tablets} active V altrex 1 GM eCW1 ([facility]) Fluconazole 150 MG Oral Tablet [Diflucan] Diflucan 150 MG Di flucan 150 MG 03/05/2020 12:00:00 AM EST 1.0 {tablet} active Diflucan 150 MG eCW1 ([facility]) valacyclovir 1000 MG Oral Tablet [Valtrex] Valtrex 1 GM Valt godfrey 1 GM 03/05/2020 12:00:00 AM EST 2.0 {tablets} active V altrex 1 GM eCW1 ([facility]) valacyclovir 1000 MG Oral Tablet [Valtrex] Valtrex 1 GM Valt godfrey 1 GM 03/05/2020 12:00:00 AM EST 2.0 {tablets} active V altrex 1 GM eCW1 ([facility]) Divalproex Sodium 250 MG Delayed Release Oral Tablet [ Depakote] Depakote 250 MG Depakote 250 MG 03/05/2020 12:00:00 AM EST 1.0 {tablet} active Depakote 250 MG eCW1 ([facility]) valacyclovir 1000 MG Oral Tablet [Valtrex] Valtrex 1 GM Valt godfrey 1 GM 03/05/2020 12:00:00 AM EST 2.0 {tablets} active V altrex 1 GM eCW1 ([facility]) valacyclovir 1000 MG Oral Tablet [Valtrex] Valtrex 1 GM Valt godfrey 1 GM 03/05/2020 12:00:00 AM EST 2.0 {tablets} active V altrex 1 GM eCW1 ([facility]) valacyclovir 1000 MG Oral Tablet [Valtrex] Valtrex 1 GM Valt godfrey 1 GM 03/05/2020 12:00:00 AM EST 2.0 {tablets} active V altrex 1 GM eCW1 ([facility]) valacyclovir 1000 MG Oral Tablet [Valtrex] Valtrex 1 GM Valt godfrey 1 GM 03/05/2020 12:00:00 AM EST 2.0 {tablets} active V altrex 1 GM eCW1 ([facility]) Divalproex Sodium 250 MG Delayed Release Oral Tablet [ Depakote] Depakote 250 MG Depakote 250 MG 03/05/2020 12:00:00 AM EST 1.0 {tablet} active Depakote 250 MG eCW1 ([facility]) aripiprazole 5 MG Oral Tablet Aripiprazole 5 MG Aripiprazole 5 MG 01/31/2020 12:00:00 AM EST 1.0 {tablet} active Ar ipiprazole 5 MG eCW1 ([facility]) aripiprazole 5 MG Oral Tablet Aripiprazole 5 MG Aripiprazole 5 MG 01/31/2020 12:00:00 AM EST 1.0 {tablet} active Ar ipiprazole 5 MG eCW1 ([facility]) aripiprazole 5 MG Oral Tablet Aripiprazole 5 MG Aripiprazole 5 MG 01/31/2020 12:00:00 AM EST 1.0 {tablet} active Ar ipiprazole 5 MG eCW1 ([facility]) aripiprazole 5 MG Oral Tablet Aripiprazole 5 MG Aripiprazole 5 MG 01/31/2020 12:00:00 AM EST 1.0 {tablet} active Ar ipiprazole 5 MG eCW1 ([facility]) 24 HR quetiapine 50 MG Extended Release Oral Tablet [Seroquel] Seroquel XR 50 MG Seroquel XR 50 MG 01/30/2020 12:00:00 AM EST 1.0 {tablet_in_ the_evening} active Seroquel XR 50 MG eCW1 ([facility]) 24 HR quetiapine 50 MG Extended Release Oral Tablet [Seroquel] Seroquel XR 50 MG Seroquel XR 50 MG 01/30/2020 12:00:00 AM EST 1.0 {tablet_in_ the_evening} active Seroquel XR 50 MG eCW1 ([facility]) 24 HR quetiapine 50 MG Extended Release Oral Tablet [Seroquel] Seroquel XR 50 MG Seroquel XR 50 MG 01/30/2020 12:00:00 AM EST 1.0 {tablet_in_ the_evening} active Seroquel XR 50 MG eCW1 ([facility]) 24 HR quetiapine 50 MG Extended Release Oral Tablet [Seroquel] Seroquel XR 50 MG Seroquel XR 50 MG 01/30/2020 12:00:00 AM EST 1.0 {tablet_in_ the_evening} active Seroquel XR 50 MG eCW1 ([facility]) Paroxetine 10 MG Oral Tablet [Paxil] Paxil 10 MG Paxil 10 MG 01/10/2020 12:00:00 AM EDT 1.0 {tablet_in_the_morning} active Paxil 10 MG eCW1 ([facility]) Paroxetine 10 MG Oral Tablet [Paxil] Paxil 10 MG Paxil 10 MG 01/10/2020 12:00:00 AM EDT 1.0 {tablet_in_the_morning} suspended Paxil 10 MG eCW1 ([facility]) Paroxetine 10 MG Oral Tablet [Paxil] Paxil 10 MG Paxil 10 MG 01/10/2020 12:00:00 AM EDT 1.0 {tablet_in_the_morning} active Paxil 10 MG eCW1 ([facility]) Paroxetine 10 MG Oral Tablet [Paxil] Paxil 10 MG Paxil 10 MG 01/10/2020 12:00:00 AM EDT 1.0 {tablet_in_the_morning} active Paxil 10 MG eCW1 ([facility]) Paroxetine 10 MG Oral Tablet [Paxil] Paxil 10 MG Paxil 10 MG 01/10/2020 12:00:00 AM EDT 1.0 {tablet_in_the_morning} active Paxil 10 MG eCW1 ([facility]) Paroxetine 10 MG Oral Tablet [Paxil] Paxil 10 MG Paxil 10 MG 01/10/2020 12:00:00 AM EDT 1.0 {tablet_in_the_morning} active Paxil 10 MG eCW1 ([facility]) Paroxetine 10 MG Oral Tablet [Paxil] Paxil 10 MG Paxil 10 MG 01/10/2020 12:00:00 AM EDT 1.0 {tablet_in_the_morning} active Paxil 10 MG eCW1 ([facility]) Paroxetine 10 MG Oral Tablet [Paxil] Paxil 10 MG Paxil 10 MG 01/10/2020 12:00:00 AM EDT 1.0 {tablet_in_the_morning} active Paxil 10 MG eCW1 ([facility]) Paroxetine 10 MG Oral Tablet [Paxil] Paxil 10 MG Paxil 10 MG 01/10/2020 12:00:00 AM EDT 1.0 {tablet_in_the_morning} active Paxil 10 MG eCW1 ([facility]) Paroxetine 10 MG Oral Tablet [Paxil] Paxil 10 MG Paxil 10 MG 01/10/2020 12:00:00 AM EDT 1.0 {tablet_in_the_morning} active Paxil 10 MG eCW1 ([facility]) Omeprazole 40 MG Delayed Release Oral Capsule Omeprazole 40 MG 12/18/2019 12:00:00 AM EDT active Omeprazo le 40 MG eCW1 ([facility]) Omeprazole 40 MG Delayed Release Oral Capsule Omeprazole 40 MG 12/18/2019 12:00:00 AM EDT active Omeprazo le 40 MG eCW1 ([facility]) Omeprazole 40 MG Delayed Release Oral Capsule Omeprazole 40 MG 12/18/2019 12:00:00 AM EDT active Omeprazo le 40 MG eCW1 ([facility]) Omeprazole 40 MG Delayed Release Oral Capsule Omeprazole 40 MG 12/18/2019 12:00:00 AM EDT active Omeprazo le 40 MG eCW1 ([facility]) Omeprazole 40 MG Delayed Release Oral Capsule Omeprazole 40 MG 12/18/2019 12:00:00 AM EDT active Omeprazo le 40 MG eCW1 ([facility]) Omeprazole 40 MG Delayed Release Oral Capsule Omeprazole 40 MG 12/18/2019 12:00:00 AM EDT active Omeprazo le 40 MG eCW1 ([facility]) Omeprazole 40 MG Delayed Release Oral Capsule Omeprazole 40 MG 12/18/2019 12:00:00 AM EDT active Omeprazo le 40 MG eCW1 ([facility]) Omeprazole 40 MG Delayed Release Oral Capsule Omeprazole 40 MG 12/18/2019 12:00:00 AM EDT active Omeprazo le 40 MG eCW1 ([facility]) Omeprazole 40 MG Delayed Release Oral Capsule Omeprazole 40 MG 12/18/2019 12:00:00 AM EDT suspended Omepr azole 40 MG eCW1 ([facility]) Omeprazole 40 MG Delayed Release Oral Capsule Omeprazole 40 MG 12/18/2019 12:00:00 AM EDT active Omeprazo le 40 MG eCW1 ([facility]) Omeprazole 40 MG Delayed Release Oral Capsule Omeprazole 40 MG 12/18/2019 12:00:00 AM EDT active Omeprazo le 40 MG eCW1 ([facility]) Omeprazole 40 MG Delayed Release Oral Capsule Omeprazole 40 MG 12/18/2019 12:00:00 AM EDT active Omeprazo le 40 MG eCW1 ([facility]) Omeprazole 40 MG Delayed Release Oral Capsule Omeprazole 40 MG 12/18/2019 12:00:00 AM EDT active Omeprazo le 40 MG eCW1 ([facility]) Omeprazole 40 MG Delayed Release Oral Capsule Omeprazole 40 MG 12/18/2019 12:00:00 AM EDT active Omeprazo le 40 MG eCW1 ([facility]) Omeprazole 40 MG Delayed Release Oral Capsule Omeprazole 40 MG 12/18/2019 12:00:00 AM EDT active Omeprazo le 40 MG eCW1 ([facility]) Omeprazole 40 MG Delayed Release Oral Capsule Omeprazole 40 MG 12/18/2019 12:00:00 AM EDT active Omeprazo le 40 MG eCW1 ([facility]) Omeprazole 40 MG Delayed Release Oral Capsule Omeprazole 40 MG 12/18/2019 12:00:00 AM EDT active Omeprazo le 40 MG eCW1 ([facility]) Omeprazole 40 MG Delayed Release Oral Capsule Omeprazole 40 MG 12/18/2019 12:00:00 AM EDT active Omeprazo le 40 MG eCW1 ([facility]) Omeprazole 40 MG Delayed Release Oral Capsule Omeprazole 40 MG 12/18/2019 12:00:00 AM EDT active Omeprazo le 40 MG eCW1 ([facility]) Omeprazole 40 MG Delayed Release Oral Capsule Omeprazole 40 MG 12/18/2019 12:00:00 AM EDT active Omeprazo le 40 MG eCW1 ([facility]) Omeprazole 40 MG Delayed Release Oral Capsule Omeprazole 40 MG 12/18/2019 12:00:00 AM EDT active Omeprazo le 40 MG eCW1 ([facility]) Insurance Providers Payer name Policy type / Coverage type Policy ID Covered constitution party ID Covered constitution party's relationship to garcia Policy Garcia Plan Information Medicaid [place] Medicaid [id number] Self [id number] Medicaid Dental S [id number] S [id number] UN COMMUNITY PLAN MCDO [id number] SP [id number] UN COMMUNITY PLAN MCDO [id number] SP [id number] [facility] MEDICAID [id number] Rachael [id number] D Managed Care [facility] P [id number] S [id number] [facility] Health Maintenance Organization (HMO) [id number] Self [id number] [facility](MCAID) O [id number] S [id number] [employer] [id number] [facility] Health Maintenance Organization (HMO) [id number] Self [id number] [facility] MEDICAID PI PI [facility] Community Plan Medigap Part B [id number] Self [id number] [employer] [id number] [facility] Health Maintenance Organization (O) [id number] Self [id number] [employer] [id number] [facility] Health Maintenance Organization (O) [id number] Self [id number] [employer] [id number] [facility] Health Maintenance Organization (O) [id number] Self [facility] Community Plan Medigap Part B [id number] Self [facility] Commercial [id number] Self UNHC AMERICHOICE XIX -HMO [id number] 18 [id number] D Managed Care [employer] O [id number] S [id number] HMO BLUE [id number] SP [id number] MEDICAID [id number] SP [id number] UNHC COMMUNITY PLAN MCDO [id number] SP [id number] [facility] [id number] SP [id number] [facility] [id number] SP [id number] UNHC COMMUNITY PLAN MCDO [id number] SP [id number] [facility] MCR[facility] [id number] SP [id number] Problems, Conditions, and Diagnoses Code Display Name Description Problem Type Effective Dates Data Source(s) 28507544 Carpal tunnel syndrome Carpal tunnel syndrome Problem 07/14/2020 12:00:00 AM EDT MEDENT ([facility], ) 07076250 Hand pain Hand pain Problem 07/14/2020 12:00:00 AM ED T MEDENT ([facility], ) 516083690 Numbness of hand Numbness of hand Problem 07/14/2020 12 :00:00 AM EDT MEDENT ([facility], ) J30.89 [id number] Seasonal allergic rhinitis due t o other allergic trigger Problem 06/18/2020 12:00:00 AM EDT eCW1 ([facility]) G56.01 [id number] Carpal tunnel syndrome, right Problem 05/28/2020 12:00:00 AM EDT eCW1 ([facility]) F19.10 22838229 Drug abuse Problem 05/12/2020 12:00:00 AM ES T eCW1 ([facility]) F31.81 11077719 Bipolar II disorder Problem 03/05/2020 12:00 :00 AM EST eCW1 ([facility]) F33.1 [id number] Major depressive disorder, recurrent, mod erate Problem 02/12/2020 12:00:00 AM EST eCW1 ([facility]) F31.9 [id number] Bipolar 1 disorder Problem 01/30/2020 12:00: 00 AM EST eCW1 ([facility]) F31.81 29825084 Bipolar 2 disorder Problem 01/30/2020 12:00: 00 AM EST eCW1 ([facility]) Surgeries/Procedures Procedure Description Date Indications Data Source(s) OFFICE OUTPATIENT VISIT 25 MINUTES 12/28/2020 12:00:00 AM EDT MEDENT ([facility], ) OFFICE OUTPATIENT VISIT 25 MINUTES 08/06/2020 12:00:00 AM EDT MEDENT ([facility], ) Needle electromyography, each extremity, with related paraspinal areas, when performed, done with nerve conduction, amplitude and latency/velocity study; complete, five or more muscles studied, innervated by three or more nerves or four or more spinal levels (list separately in addition to the code for primary procedure). 07/17/2020 12:00:00 AM EDT MEDEN T ([facility], ) Needle Electromyography Non Extremity Done With Nerve Conduc tion 07/17/2020 12:00:00 AM EDT MEDENT ([facility], ) Nerve Conduction 9-10 Studies 07/17/2020 12:00:00 AM E DT MEDENT ([facility], ) Results ID Date Data Source [id number] 03/04/2020 12:00:00 AM EST [place] Name Value Range Interpretation Code Description Data Mildred rce(s) Supporting Document(s) SARS [facility] 2 [facility] was ordered by [facility] and reported by [facility]. ID Date Data Source GENITAL CULTURE 12/19/2019 09:05:41 AM EDT eCW1 ([facility]) Name Value Range Interpretation Code Description Data Mildred rce(s) Supporting Document(s) GENITAL CULTURE eCW1 ([facility]) ID Date Data Source URINE CULTURE 12/17/2019 09:24:30 AM EDT eCW1 ([facility]) Name Value Range Interpretation Code Description Data Mildred rce(s) Supporting Document(s) URINE CULTURE eCW1 ([facility]) ID Date Data Source UCG 12/13/2019 02:49:20 AM EDT eCW1 ([facility]) Name Value Range Interpretation Code Description Data Mildred rce(s) Supporting Document(s) negative Test, Urine eCW1 ([facility]) yes Internal QC Acceptable (Y/N) e CW1 ([facility]) ID Date Data Source Urinalysis, no micro 12/13/2019 02:49:14 AM EDT eCW1 ([facility]) Name Value Range Interpretation Code Description Data Mildred rce(s) Supporting Document(s) 1.020 Spec gravity eCW1 ([facility]) 5 pH eCW1 ([facility]) neg Nitrate eCW1 ([facility]) neg Leukocyte eCW1 ([facility]) neg Glucose eCW1 ([facility]) neg Protein eCW1 ([facility]) neg Ketones eCW1 ([facility]) normal Urobili eCW1 ([facility]) neg Bilirubin eCW1 ([facility]) neg Blood eCW1 ([facility]) yes Internal QC Acceptable (Y/N) e CW1 ([facility]) Procedure Social History Code Duration Value Status Description Data Source(s ) Smoking 03/04/2020 12:00:00 AM EST Patient is a former smoker completed Patient is a former smoker [facility] Vital Signs ID Date Data Source UNK Name Value Range Interpretation Code Description Data Source(s) Body temperature 97.4 [degF] 97.4 [degF] [facility] Body temperature 97.2 [degF] 97.2 [degF] [facility] Body temperature 97.2 [degF] 97.2 [degF] [facility] Diastolic blood pressure 80 mm[Hg] 80 mm[Hg] [facility] ([facility]) Body height 59 [in_i] 59 [in_i] [facility] ([facility]) 4'11" Systolic blood pressure 120 mm[Hg] 120 mm[Hg] Gordy YEE ([facility]) Body weight 121.00 [lb_av] 121.00 [lb_av] MEDEN T ([facility]) Body mass index (BMI) [Ratio] 24.4 kg/m2 24.4 k g/m2 [facility] ([facility]) [place] body weight 100 [lb_av] 100 [lb_av] MEDEN T ([facility]) Heart rate 72 /min 72 /min [facility] ([facility]) Body weight 121.4 [lb_av] 121.4 [lb_av] eCW1 ([facility]) Body height 59 [in_i] 59 [in_i] eCW1 ([facility]) Body mass index (BMI) [Ratio] 24.52 kg/m2 24.52 kg/m2 eCW1 ([facility]) Heart rate 100 /min 100 /min eCW1 ([facility]) Respiratory rate 17 /min 17 /min eCW1 ([facility]) Body temperature 98.5 [degF] 98.5 [degF] eCW1 ( [facility]) Systolic blood pressure 97 mm[Hg] 97 mm[Hg] e CW1 ([facility]) Diastolic blood pressure 54 mm[Hg] 54 mm[Hg] eCW1 ([facility]) Body temperature 98.7 [degF] 98.7 [degF] MEDENT ([facility] ) Body height 59 [in_i] 59 [in_i] [facility] 4'11" Body weight 121.00 [lb_av] 121.00 [lb_av] MEDEN T ([facility]) Body mass index (BMI) [Ratio] 24.4 kg/m2 24.4 k g/m2 [facility] [place] body weight 100 [lb_av] 100 [lb_av] [facility] Body weight 54.886 kg 54.886 kg [facility] ([facility]) Body surface area Derived from formula 1.49 m2 1.49 m2 [facility]) Systolic blood pressure 113 mm[Hg] 113 mm[Hg] M EDENT ([facility]) Diastolic blood pressure 57 mm[Hg] 57 mm[Hg] MEDENT ([facility]) Heart rate 86 /min 86 /min [facility] ([facility]) Oxygen saturation in Arterial blood by Pulse oximetry 100 % 100 % [facility] Room Air Body weight 118.6 [lb_av] 118.6 [lb_av] eCW1 ([facility], [facility]) Body height 59 [in_i] 59 [in_i] eCW1 ([facility]) Body mass index (BMI) [Ratio] 23.95 kg/m2 23.95 kg/m2 eCW1 ([facility]) Heart rate 70 /min 70 /min eCW1 ([facility]) Respiratory rate 16 /min 16 /min eCW1 ([facility]) Body temperature 98.3 [degF] 98.3 [degF] eCW1 ( [facility]) Systolic blood pressure 102 mm[Hg] 102 mm[Hg] e CW1 ([facility]) Diastolic blood pressure 60 mm[Hg] 60 mm[Hg] eCW1 ([facility]) Body weight 117.4 [lb_av] 117.4 [lb_av] eCW1 ([facility]) Body height 59 [in_i] 59 [in_i] eCW1 ([facility]) Body mass index (BMI) [Ratio] 23.71 kg/m2 23.71 kg/m2 eCW1 ([facility]) Heart rate 77 /min 77 /min eCW1 ([facility]) Respiratory rate 17 /min 17 /min eCW1 ([facility]) Body temperature 96.9 [degF] 96.9 [degF] eCW1 ( [facility]) Systolic blood pressure 97 mm[Hg] 97 mm[Hg] e CW1 ([facility]) Diastolic blood pressure 52 mm[Hg] 52 mm[Hg] eCW1 ([facility]) Body weight 131 [lb_av] 131 [lb_av] eCW1 ([facility]) Body height 59 [in_i] 59 [in_i] eCW1 ([facility]) Body mass index (BMI) [Ratio] 26.46 kg/m2 26.46 kg/m2 eCW1 ([facility]) Heart rate 65 /min 65 /min eCW1 ([facility]) Respiratory rate 18 /min 18 /min eCW1 ([facility]) Body temperature 98.5 [degF] 98.5 [degF] eCW1 ( [facility]) Systolic blood pressure 109 mm[Hg] 109 mm[Hg] e CW1 ([facility]) Diastolic blood pressure 51 mm[Hg] 51 mm[Hg] eCW1 ([facility]) Oxygen saturation in Arterial blood by Pulse oximetry 99 % 99 % MEDENT ([facility]) Body height 59 [in_i] 59 [in_i] MEDENT ([facility]) 4'11" Body mass index (BMI) [Ratio] 26.3 kg/m2 26.3 k g/m2 MEDENT ([facility], [facility]) Body temperature 98.7 [degF] 98.7 [degF] MEDENT ([facility], [facility]) Systolic blood pressure 107 mm[Hg] 107 mm[Hg] M EDENT ([facility], [facility]) Body weight 130.00 [lb_av] 130.00 [lb_av] MEDEN T ([facility], [facility]) Diastolic blood pressure 70 mm[Hg] 70 mm[Hg] MEDENT ([facility], [facility]) Heart rate 72 /min 72 /min MEDENT ([facility], [facility]) Respiratory rate 19 /min 19 /min MEDENT ( [facility], [facility]) Body weight 139.4 [lb_av] 139.4 [lb_av] eCW1 ([facility]) Body height 59 [in_i] 59 [in_i] eCW1 ([facility]) Body mass index (BMI) [Ratio] 28.15 kg/m2 28.15 kg/m2 eCW1 ([facility]) Heart rate 73 /min 73 /min eCW1 ([facility]) Respiratory rate 18 /min 18 /min eCW1 ([facility]) Body temperature 98.5 [degF] 98.5 [degF] eCW1 ( [facility]) Systolic blood pressure 96 mm[Hg] 96 mm[Hg] e CW1 ([facility]) Diastolic blood pressure 53 mm[Hg] 53 mm[Hg] eCW1 ([facility]) Body weight 129.2 [lb_av] 129.2 [lb_av] eCW1 ([facility]) Body height 59 [in_i] 59 [in_i] eCW1 ([facility]) Body mass index (BMI) [Ratio] 26.09 kg/m2 26.09 kg/m2 eCW1 ([facility]) Heart rate 71 /min 71 /min eCW1 ([facility]) Respiratory rate 17 /min 17 /min eCW1 ([facility]) Body temperature 97.8 [degF] 97.8 [degF] eCW1 ( [facility]) Systolic blood pressure 110 mm[Hg] 110 mm[Hg] e CW1 ([facility]) Diastolic blood pressure 74 mm[Hg] 74 mm[Hg] eCW1 ([facility]) Patient Treatment Plan of Care Planned Activity Planned Date Details Description Data Source (s) Fluticasone Propionate 50 MCG/ACT 06/18/2020 12:00:00 AM EDT eCW1 ([facility]) Fluticasone Propionate 50 MCG/ACT 06/18/2020 12:00:00 AM EDT eCW1 ([facility]) Fluticasone Propionate 50 MCG/ACT 06/18/2020 12:00:00 AM EDT eCW1 ([facility]) Fluticasone Propionate 50 MCG/ACT 06/18/2020 12:00:00 AM EDT eCW1 ([facility]) Fluticasone Propionate 50 MCG/ACT 06/18/2020 12:00:00 AM EDT eCW1 ([facility]) Fluticasone Propionate 50 MCG/ACT 06/18/2020 12:00:00 AM EDT eCW1 ([facility]) valacyclovir 1000 MG Oral Tablet [Valtrex] 03/05/2020 12:00:[address] eCW1 ([facility]) Divalproex Sodium 250 MG Delayed Release Oral Tablet [ Depakote] 03/05/2020 12:00:00 AM EST eCW1 ([facility]) Sulfamethoxazole 800 MG / Trimethoprim 160 MG Oral Tab let [Bactrim] 03/05/2020 12:00:00 AM EST eCW1 ([facility]) Fluconazole 150 MG Oral Tablet [Diflucan] 03/05/2020 12:00:00 AM ES T eCW1 ([facility]) Sulfamethoxazole 800 MG / Trimethoprim 160 MG Oral Tab let [Bactrim] 03/05/2020 12:00:00 AM EST eCW1 ([facility]) valacyclovir 1000 MG Oral Tablet [Valtrex] 03/05/2020 12:00:[address] eCW1 ([facility]) Divalproex Sodium 250 MG Delayed Release Oral Tablet [ Depakote] 03/05/2020 12:00:00 AM EST eCW1 ([facility]) Fluconazole 150 MG Oral Tablet [Diflucan] 03/05/2020 12:00:00 AM ES T eCW1 ([facility]) Sulfamethoxazole 800 MG / Trimethoprim 160 MG Oral Tab let [Bactrim] 03/05/2020 12:00:00 AM EST eCW1 ([facility]) valacyclovir 1000 MG Oral Tablet [Valtrex] 03/05/2020 12:00:[address] eCW1 ([facility]) Divalproex Sodium 250 MG Delayed Release Oral Tablet [ Depakote] 03/05/2020 12:00:00 AM EST eCW1 ([facility]) Fluconazole 150 MG Oral Tablet [Diflucan] 03/05/2020 12:00:00 AM ES T eCW1 ([facility]) Sulfamethoxazole 800 MG / Trimethoprim 160 MG Oral Tab let [Bactrim] 03/05/2020 12:00:00 AM EST eCW1 ([facility]) valacyclovir 1000 MG Oral Tablet [Valtrex] 03/05/2020 12:00:[address] eCW1 ([facility]) Divalproex Sodium 250 MG Delayed Release Oral Tablet [ Depakote] 03/05/2020 12:00:00 AM EST eCW1 ([facility]) Fluconazole 150 MG Oral Tablet [Diflucan] 03/05/2020 12:00:00 AM ES T eCW1 ([facility]) aripiprazole 5 MG Oral Tablet 01/31/2020 12:00:00 AM EST eCW1 ([facility]) aripiprazole 5 MG Oral Tablet 01/31/2020 12:00:00 AM EST eCW1 ([facility]) aripiprazole 5 MG Oral Tablet 01/31/2020 12:00:00 AM EST eCW1 ([facility]) aripiprazole 5 MG Oral Tablet 01/31/2020 12:00:00 AM EST eCW1 ([facility]) 24 HR quetiapine 50 MG Extended Release Oral Tablet [S eroquel] 01/30/2020 12:00:00 AM EST eCW1 ([facility]) 24 HR quetiapine 50 MG Extended Release Oral Tablet [S eroquel] 01/30/2020 12:00:00 AM EST eCW1 ([facility]) 24 HR quetiapine 50 MG Extended Release Oral Tablet [S eroquel] 01/30/2020 12:00:00 AM EST eCW1 ([facility]) 24 HR quetiapine 50 MG Extended Release Oral Tablet [S eroquel] 01/30/2020 12:00:00 AM EST eCW1 ([facility]) Paroxetine 10 MG Oral Tablet [Paxil] 01/10/2020 12:00:00 AM EDT eCW1 ([facility]) Omeprazole 40 MG Delayed Release Oral Capsule 12/18/2019 12:00:00 A M EDT eCW1 ([facility]) Omeprazole 40 MG Delayed Release Oral Capsule 12/18/2019 12:00:00 A M EDT eCW1 ([facility])
--- OUTSIDE RECORDS SUMMARY | 2021-02-03 06:15 | CCD | Continuity of Care Document ---
Author Author Haley WERNER MD Organization Unknown Address [address] [place] [address] , [facility] [address] [place] [address] Phone [phone] Care Team Providers Care Business Proposal Rep Name Role Phone Jorge De Jesus M.D. [facility] [phone] Sania Olmstead M.D. [facility] [phone] [facility] Unavailable Problems Description No Information Available [...] Available Procedures Date Code Description Status 12/28/2020 57584 Office/Outpatient Established Mo d MDM 30-39 Min Completed 08/06/2020 01672 Office/Outpatient Established Mo d MDM 30-39 Min [...]
[2021-02-03] MEDS ORDERED: QUET50TA4 PO (06:33)
[2021-02-03] MEDS ORDERED: BUPIVACAINE/EPIN 0.25% 30 ML VIAL As Ordered ONE (07:12)
[2021-02-03] MEDS ORDERED: ONDANSETRON 4MG/2ML VIAL As Ordered ONE (07:24)
[2021-02-03] MEDS ORDERED: LIDOCAINE 2% 100MG/5ML SDV (FOR ANES.) As Ordered ONE (07:24)
[2021-02-03] MEDS ORDERED: propofoL 200 MG/20 ML VIAL As Ordered ONE (07:24)
[2021-02-03] MEDS ORDERED: MIDAZOLAM INJ 2MG/2ML VIAL (J2250 PER 1MG) As Ordered ONE (07:24)
[2021-02-03] MEDS ORDERED: fentaNYL 100 MCG/2 ML INJECTION (J3010) As Ordered ONE (07:25)
[2021-02-03] MEDS ORDERED: ePHEDrine SULFATE 25 MG/5 ML(5MG/ML) SYRINGE As Ordered ONE (07:45)
[2021-02-03] MEDS ORDERED: KETOROLAC 60MG 2ML VIAL As Ordered ONE (07:59)
--- NOTE | 2021-02-03 08:18 | ROOPDOC ---
[facility] Report Of Operation Report of Operation DATE OF PROCEDURE: 02/03/21 PREPROCEDURE DIAGNOSES: Right carpal tunnel syndrome. POSTPROCEDURE DIAGNOSES: Same. PROCEDURE PERFORMED: Right open carpal tunnel release. SURGEON: Dr. Ed Werner MD SADDLE STITCHER: ANESTHESIA: Bob. local/mac ESTIMATED BLOOD LOSS: Approximately 10 mL. COMPLICATIONS: none. REMARKS: none FINDINGS: SPECIMENS REMOVED: none PROCEDURE NOTE: 39 yr old female signs and symptoms, plus NCS / EMG evidence of carpal tunnel syndrome. Discussed the pros and cons risks and benefits of proceeding with right open carpal tunnel release. She wished to proceed and had no further questions. I marked the right upper extremity. DESCRIPTION OF PROCEDURE: Patient was brought to the operating theater. They were placed supine on the operating room table. Hand table was used. Limb was prepped and draped in the usual sterile fashion. I used chlorhexidine-based prep solution allowing over 3 minutes drying time prior to draping. 2 g of IV Ancef was given prior to starting the case. Local/MAC anesthesia was used. Preoperative timeout was performed confirming the site the patient and the surgery. I began by infiltrating 4 mL of 0.25 percent Marcaine with epinephrine in and around the proposed incision site. This was on the palmar surface just distal to the wrist crease longitudinally in line with the fourth digit. The incision length was approximately 2 cm. I allowed the local anesthetic time to work. I carried the dissection down through skin and subcutaneous tissue to meticulous hemostasis. I incised the palmar fascia in line with the skin incision. I incised the transverse carpal ligament in line with the skin incision fully proximally and distally. Nerve appeared in continuity throughout the case. I thoroughly irrigated the wound with normal saline. I closed the subcutaneous tissues with 2-0 Vicryl sutures and the skin with 3-0 Ethilon in a horizontal mattress fashion. Wound cleaned with wet and dry dressing followed by application of non stick dressing, 4 x 8 gauze and overwrapped with Mirella type dressing. Patient was woken up from their sedation and transferred off the operating room table and taken to postanesthetic care unit in stable condition. All sponge, needle, instrument counts were correct. No complications. The patient is to start immediate hand wrist and elbow exercises but avoid heavy lifting and gripping-type activities for the first 6 weeks. They will be discharged home according to day surgery criteria. They can change the dressing postoperative day 1 and avoid showering over top or getting it wet for the first 14 days. Follow-up in the office in 2 weeks' time. Postoperative wound instructions were given. It was recommended to keep the wound clean and dry. Dressing changes as needed. It was reinforced with the patient that they should call us or be seen im mediately for redness, drainage, or fever. ED WERNER MD Feb 03, 2021 08:18
[2021-02-03] MEDS ORDERED: LIDOCAINE 5% OINT 30GM TUBE As Ordered ONE (08:32)
[2021-02-03 09:00] VITALS: BP 110/49
== END 2021-02-03 09:00 | disposition home or self-care (01) ==
LOC: M SDC 06:12
PROVIDERS: ATTEND Orthopaedic Surgery Sports Medicine
DX: G56.01 Carpal tunnel syndrome, right upper limb (principal)
CPT/HCPCS: 64721; 81025; J0690; J1885; J2250; J2405; J3010

== ENCOUNTER 2021-05-02 11:54 | Emergency (ER) | payer OTHER, MEDICAID ==
[~2021-05-02] VITALS: Ht 149.9 cm; Wt 56.8 kg
[~2021-05-02 11:54] MED LIST changes: -LR 1,000 ML IV ONE; +QUET50TA4 PO; -ceFAZolin SOD 2 GM in IV 1 EA IV ONE
[2021-05-02 13:46] LABS: HEMATOCRIT 38.3 % (36.0-47.0); HEMOGLOBIN 12.6 g/dl (12.0-15.5); MEAN CORPUSCULAR HEMOGLOBIN 31.8 pg (27.0-33.0); MEAN CORPUSCULAR HGB CONC 32.9 g/dl (32.0-36.5); MEAN CORPUSCULAR VOLUME 96.7 fl (80.0-96.0); PLATELET COUNT, AUTOMATED 223 10^3/uL (150-450); RED BLOOD COUNT 3.96 10^6/uL (4.00-5.40); WHITE BLOOD COUNT 9.2 10^3/uL (4.0-10.0)
[2021-05-02 14:14] LABS: HCG, SERUM QUALITATIVE NEGATIVE (NEGATIVE)
[2021-05-02 14:17] LABS: RSV AMPLIFICATION NEGATIVE (NEGATIVE)
[2021-05-02 14:18] LABS: AMPHETAMINES LEVEL URINE NEGATIVE (NEGATIVE); BARBITURATES URINE NEGATIVE (NEGATIVE); BENZODIAZEPINES URINE NEGATIVE (NEGATIVE); CANNABINOIDS URINE POSITIVE (NEGATIVE); COCAINE METABOLITE URINE NEGATIVE (NEGATIVE); METHADONE URINE NEGATIVE (NEGATIVE); OPIATES URINE NEGATIVE (NEGATIVE); PHENCYCLIDINE URINE NEGATIVE (NEGATIVE)
[2021-05-02 14:24] LABS: ACETAMINOPHEN LEVEL < 2.0 UG/ML (10.0-30.0); ALBUMIN 3.3 GM/DL (3.2-5.2); ALT/SGPT 35 U/L (12-78); BILIRUBIN,DIRECT < 0.1 MG/DL (0.0-0.2); BILIRUBIN,TOTAL 0.1 MG/DL (0.2-1.0); BLOOD UREA NITROGEN 10 MG/DL (7-18); CALCIUM LEVEL 8.5 MG/DL (8.5-10.1); CARBON DIOXIDE LEVEL 29 MEQ/L (21-32); CHLORIDE LEVEL 106 MEQ/L (98-107); CREATININE FOR GFR 0.66 MG/DL (0.55-1.30); ETHYL ALCOHOL (ETHANOL) < 0.003 % (0.000-0.010); GLOMERULAR FILTRATION RATE > 60.0 (>60); GLUCOSE, FASTING 64 MG/DL (70-100); POTASSIUM SERUM 4.3 MEQ/L (3.5-5.1); SALICYLATE LEVEL 2.2 MG/DL (5.0-30.0); SODIUM LEVEL 140 MEQ/L (136-145); TOTAL PROTEIN 6.4 GM/DL (6.4-8.2)
[2021-05-02] MEDS ORDERED: ZOLO100T PO (17:30)
[2021-05-02] MEDS ORDERED: OXCA150T21 PO (17:30)
[2021-05-02] MEDS ORDERED: HOME MED LIST COMPLETE! XX SCH (17:30)
[2021-05-02] MEDS ORDERED: LORA2TAB14 PO ×2 (17:30)
[2021-05-03] MEDS: OXcarbazepine 150 MG TAB PO SCH ×2 (08:31→15:00)
[2021-05-03] MEDS ORDERED: SERTRALINE 100 MG TAB PO SCH (09:00)
[2021-05-03] MEDS ORDERED: hydrOXYzine 25 MG TAB PO ONE (15:10)
[2021-05-03 16:40] VITALS: BP 102/53
== END 2021-05-03 16:42 | disposition home or self-care (01) ==
LOC: M ED 11:54
DX: F31.9 Bipolar disorder, unspecified (principal); R00.1 Bradycardia, unspecified; Z98.84 Bariatric surgery status

== ENCOUNTER → 2022-02-01 | Outpatient (CLI) | payer OTHER ==
[~2022-02-01] MED LIST changes: +LORA2TAB14 PO; +OXCA150T21 PO; +ZOLO100T PO
[2022-02-01 10:58] LABS: BASO # 0.1 10^3/uL (0.0-0.2); BASO % 0.8 % (0.0-1.0); EOS # 0.6 10^3/uL (0.0-0.5); EOS % 10.3 % (0.0-3.0); HEMATOCRIT 41.6 % (36.0-47.0); HEMOGLOBIN 12.8 g/dl (12.0-15.5); LYMPH # 1.7 10^3/uL (1.5-5.0); LYMPH % 27.9 % (24.0-44.0); MEAN CORPUSCULAR HEMOGLOBIN 30.5 pg (27.0-33.0); MEAN CORPUSCULAR HGB CONC 30.8 g/dl (32.0-36.5); MONO # 0.9 10^3/uL (0.0-0.8); MONO % 15.7 % (2.0-8.0); NEUTROPHILS # 2.7 10^3/uL (1.5-8.5); PLATELET COUNT, AUTOMATED 195 10^3/uL (150-450); WHITE BLOOD COUNT 5.9 10^3/uL (4.0-10.0)
[2022-02-02 01:15] LABS: ALBUMIN 3.5 G/DL (3.2-5.2); ALT/SGPT 15 U/L (7.0-40); BILIRUBIN,TOTAL 0.3 MG/DL (0.3-1.2); BLOOD UREA NITROGEN 6 MG/DL (9-23); CALCIUM LEVEL 8.9 MG/DL (8.5-10.1); CARBON DIOXIDE LEVEL 28 MMOL/L (20-31); CHLORIDE LEVEL 108 MMOL/L (98-107); CHOLESTEROL LEVEL 129 MG/DL (<200); CHOLESTEROL RISK RATIO 2.59 (<5); CREATININE FOR GFR 0.69 MG/DL (0.55-1.30); FOLATE > 24.0 NG/ML (>5.4); FREE T4 0.96 NG/DL (0.89-1.76); GLOMERULAR FILTRATION RATE > 60.0 (>60); GLUCOSE, FASTING 81 MG/DL (60-100); HDL CHOLESTEROL 49.8 MG/DL (>40); NON-HDL-C 79 MG/DL; POTASSIUM SERUM 4.1 MMOL/L (3.5-5.1); SODIUM LEVEL 143 MMOL/L (136-145); THYROID STIMULATING HORMONE 0.557 uIU/ML (0.55-4.78); TOTAL 25(OH) VITAMIN D 59.5 NG/ML (20.0-100.0); TOTAL PROTEIN 6.1 G/DL (5.7-8.2); TRIGLYCERIDES LEVEL 66 MG/DL (<150); VITAMIN B12 LEVEL 772 PG/ML (211-911)
== END ==
LOC: M RAD 09:48
PROVIDERS: ATTEND Physician Assistant
DX: R05.8 Other specified cough (principal); Z98.84 Bariatric surgery status

== ENCOUNTER → 2023-02-28 | Outpatient (REF) | payer OTHER ==
[2023-02-28 15:02] LABS: HEMATOCRIT 41.1 % (36.0-47.0); HEMOGLOBIN 13.9 g/dl (12.0-15.5); MEAN CORPUSCULAR HEMOGLOBIN 32.4 pg (27.0-33.0); MEAN CORPUSCULAR HGB CONC 33.8 g/dl (32.0-36.5); MEAN CORPUSCULAR VOLUME 95.8 fl (80.0-96.0); PLATELET COUNT, AUTOMATED 250 10^3/uL (150-450); RED BLOOD COUNT 4.29 10^6/uL (4.00-5.40); WHITE BLOOD COUNT 7.2 10^3/uL (4.0-10.0)
[2023-02-28 16:01] LABS: HIV 1&2 SCREEN NEGATIVE (NEGATIVE)
== END ==
LOC: M LAB REF 11:58
PROVIDERS: ATTEND Obstetrics & Gynecology
DX: O36.80X0 Pregnancy with inconclusive fetal viability, not applicable or unspecified (principal)

== ENCOUNTER → 2023-04-14 | Outpatient (REF) | payer OTHER | LOC: M SFHCPLAZ 11:42 | PROVIDERS: ATTEND Family Medicine | DX: R42 Dizziness and giddiness (principal) ==

== ENCOUNTER 2023-04-27 16:03 | Emergency (ER) | payer OTHER ==
[~2023-04-27] VITALS: Ht 149.9 cm; Wt 60.8 kg
[2023-04-27] MEDS ORDERED: FOLI400T13 (16:08)
[2023-04-27 18:57] LABS: APPEARANCE, URINE CLEAR (CLEAR); BACTERIA, URINE AUTO NEGATIVE (NEGATIVE); BILIRUBIN, URINE AUTO NEGATIVE (NEGATIVE); BLOOD, URINE BLOOD NEGATIVE (NEGATIVE); COLOR, URINE YELLOW (YELLOW); GLUCOSE, URINE (UA) AUTO NEGATIVE (NEGATIVE); KETONE, URINE AUTO NEGATIVE (NEGATIVE); LEUKOCYTE ESTERASE, URINE AUTO NEGATIVE (NEGATIVE); MUCUS, URINE SMALL (NEGATIVE); NITRITE, URINE AUTO NEGATIVE (NEGATIVE); PROTEIN, URINE AUTO NEGATIVE (NEGATIVE); RBC, URINE AUTO 0 /HPF (0-3); SPECIFIC GRAVITY URINE AUTO 1.027 (1.002-1.035); SQUAMOUS EPITHELIAL CELL UR AU 1 /HPF (0-6); WBC, URINE AUTO 0 /HPF (0-3)
[2023-04-27 19:48] VITALS: BP 99/60; TEMP 98.9; O2SAT 98
== END 2023-04-27 19:49 | disposition home or self-care (01) ==
LOC: M ED 16:03
DX: O26.892 Other specified pregnancy related conditions, second trimester (principal); S30.1XXA Contusion of abdominal wall, initial encounter; W10.8XXA Fall (on) (from) other stairs and steps, initial encounter; F31.9 Bipolar disorder, unspecified; F32.A Depression, unspecified; Z98.84 Bariatric surgery status; Z3A.16 16 weeks gestation of pregnancy; Y92.9 Unspecified place or not applicable; Y93.9 Activity, unspecified; Y99.9 Unspecified external cause status; Z79.899 Other long term (current) drug therapy

== ENCOUNTER → 2023-06-15 | Outpatient (REF) | payer OTHER, MEDICAID ==
[~2023-06-15] MED LIST changes: +FOLI400T13
== END ==
LOC: M SFHCLERA 16:30
PROVIDERS: ATTEND Family Medicine
DX: R50.9 Fever, unspecified (principal)

== ENCOUNTER → 2023-08-03 | Outpatient (CLI) | payer MEDICAID, OTHER | LOC: M LAB 11:03 | PROVIDERS: ATTEND Obstetrics & Gynecology | DX: Z34.82 Encounter for supervision of other normal pregnancy, second trimester (principal) ==

== ENCOUNTER → 2023-08-08 | Outpatient (CLI) | payer OTHER | LOC: M LAB 08:04 | PROVIDERS: ATTEND Obstetrics & Gynecology | DX: O99.810 Abnormal glucose complicating pregnancy (principal); Z3A.00 Weeks of gestation of pregnancy not specified ==

== ENCOUNTER → 2023-09-26 | Outpatient (REF) | payer OTHER, MEDICAID | LOC: M LAB REF 12:43 | PROVIDERS: ATTEND Obstetrics & Gynecology | DX: Z34.83 Encounter for supervision of other normal pregnancy, third trimester (principal) ==

== ENCOUNTER 2023-10-16 18:08 | Outpatient (CLI) | payer OTHER ==
[~2023-10-16] VITALS: Ht 149.9 cm; Wt 82.5 kg
[2023-10-16 18:24] VITALS: BP 123/64; O2SAT 99
[2023-10-16] MEDS ORDERED: HOME MED LIST COMPLETE! XX SCH (18:30)
[2023-10-16 18:37] VITALS: BP 119/70
[2023-10-16] MEDS: FIORICET TAB PO ONE (18:45)
[2023-10-16] MEDS ORDERED: ACET-907 PO (18:49)
== END 2023-10-16 19:30 | disposition home or self-care (01) ==
LOC: M LDO 18:08
PROVIDERS: ATTEND Advanced Practice Midwife
DX: O26.893 Other specified pregnancy related conditions, third trimester (principal); O09.523 Supervision of elderly multigravida, third trimester; R60.9 Edema, unspecified; Z3A.38 38 weeks gestation of pregnancy
CPT/HCPCS: 59025; G0463